=== PATIENT | female | born 1985 | race Two or more races ===

== ENCOUNTER → 2019-12-24 | Outpatient (CLI) | payer MEDICAID ==
[2019-12-24 10:44] LABS: Cholesterol 170 mg/dL (< 200); HDL Cholesterol 37 mg/dL (40-59); LDL Cholesterol 120 mg/dL (< 100); Triglycerides 175 mg/dL (< 150)
== END | disposition home or self-care (01) ==
LOC: LAB 09:47
PROVIDERS: ATTEND Specialist
DX: Z01.419 Encounter for gynecological examination (general) (routine) without abnormal findings (principal)
CPT/HCPCS: 36415; 80061; 83036; 83525; 84146; 84403

== ENCOUNTER 2020-01-29 09:14 | Emergency (ER) | payer MEDICAID ==
[~2020-01-29] VITALS: Ht 149.9 cm; Wt 92.1 kg
[2020-01-29 09:40] LABS: Urine WBC None Seen /hpf (0 - 5)
[2020-01-29 10:13] LABS: Urine Bacteria FEW /hpf (None Seen); Urine Blood Negative /uL (Negative); Urine Specific Gravity 1.009 (1.001-1.035)
[2020-01-29 10:28] LABS: Basophils # (auto) 0.1 10 ^3/uL (0-0.2); Basophils % (auto) 0.4 % (0.0-2.0); Eosinophils # (auto) 0.1 10 ^3/uL (0-0.8); Hematocrit 42.4 % (36.0-46.0); Hemoglobin 13.9 g/dL (12.2-16.2); Lymphocytes # (auto) 2.3 10 ^3/uL (0.4-5.4); Lymphocytes % (auto) 18.8 % (10.0-50.0); Mean Corpuscular Hemoglobin 28.2 pg (28.0-32.0); Mean Corpuscular Hgb Conc. 32.8 g/dL (32.0-36.0); Monocytes # (auto) 0.4 10 ^3/uL (0-1.3); Neutrophils # (auto) 9.4 10 ^3/uL (1.6-8.6); Neutrophils % (auto) 76.8 % (37.0-80.0); Nucleated Red Blood Cells % 0.1 %; Platelet Count (auto) 259 10^3/uL (140-450); Red Blood Cells 4.93 10^6/uL (4.0-5.20); Red Cell Distribution Width 14.4 % (11.8-14.3); White Blood Cell 12.2 10^3/uL (4.4-10.8)
[2020-01-29 10:51] LABS: Potassium 4.1 mmol/L (3.5-5.1)
[2020-01-29 10:57] LABS: BUN/Creatinine Ratio 12.1; Calcium 8.5 mg/dL (8.5-10.1)
[2020-01-29 11:02] VITALS: BP 120/69
== END 2020-01-29 12:27 | disposition home or self-care (01) ==
LOC: ER 09:14
DX: R60.0 Localized edema (principal)
CPT/HCPCS: 36415; 80048; 81001; 83880; 85025